=== PATIENT | male | born 1980 | race African-American/Black ===

== ENCOUNTER 2017-04-28 22:49 | Emergency (ER) | payer MEDICAID, OTHER ==
[~2017-04-28] VITALS: Ht 188 cm; Wt 96.0 kg
[2017-04-28] MEDS ORDERED: SODIUM CHLORIDE 0.9% 1,000 ML IV ONE (23:10)
[2017-04-29] MEDS ORDERED: METFORMIN HCL 500MG TABLET PO ONE
[2017-04-29] MEDS ORDERED: AMLODIPINE 5MG TABLET PO ONE
[2017-04-29 00:05] LABS: EOSINOPHILS % 2.4 % (0.0-5.0); HEMATOCRIT. 37.7 % (42.0-52.0); HEMOGLOBIN. 12.9 g/dL (14.0-18.0); LYMPHOCYTES % 28.8 % (20.0-50.0); MEAN CORPUSCULAR HEMOGLOBIN 29.9 pg (28.0-32.0); MEAN CORPUSCULAR VOLUME 87.1 fL (80.0-94.0); MEAN PLATELET VOLUME 7.6 fl (7.4-10.4); MONOCYTES % 10.1 % (2.0-8.0); NEUTROPHILS % 57.7 % (40.0-76.0); PLATELET 239 x1000/uL (130-400); RED BLOOD CELL COUNT 4.33 mill/uL (4.7-6.1); RED CELL DISTRIBUTION WIDTH 13.3 % (11.6-14.6)
[2017-04-29 00:06] LABS: INR 1.1; PROTHROMBIN TIME 10.9 sec (9.4-11.6)
[2017-04-29 00:19] LABS: CARBON DIOXIDE 32 mEq/L (21-32); CHLORIDE 105 mEq/L (98-107)
[2017-04-29 00:20] LABS: TROPONIN I < 0.02 ng/mL (0.00-0.04)
[2017-04-29] MEDS ORDERED: IOHEXOL-350 100 ML BOTTLE ONE (01:20)
[2017-04-29 04:50] VITALS: BP 130/85
[2017-04-29] MEDS ORDERED: GLIPIZIDE 10MG TABLET PO SCH (07:00)
== END 2017-04-29 05:03 | disposition home or self-care (01) ==
LOC: ER 23:00 → CANBEDREQ 04-29 05:40
DX: R07.89 Other chest pain (principal); F43.9 Reaction to severe stress, unspecified; I45.10 Unspecified right bundle-branch block
CPT/HCPCS: 36415; 71045; 71275; 74174; 80053; 83880; 84484; 85025; 85610; 93005; 96360; 96361; 99285; Q9967; J7030

== ENCOUNTER 2018-07-12 01:39 | Emergency (ER) | payer MEDICAID, MEDICARE ==
[~2018-07-12] VITALS: Ht 188 cm; Wt 97.3 kg
[2018-07-12 04:01] VITALS: BP 109/58
== END 2018-07-12 04:04 | disposition home or self-care (01) ==
LOC: ER 01:39
DX: J18.9 Pneumonia, unspecified organism (principal)
CPT/HCPCS: 71045; 93005; 99283